=== PATIENT | male | born 1960 | race Asian ===

== ENCOUNTER 2021-10-13 15:17 | Emergency (ER) | payer MEDICARE, MEDICAID ==
[~2021-10-13] VITALS: Ht 172.7 cm; Wt 63.6 kg
[~2021-10-13 15:17] MED LIST: ABILIFY PO; ASPI-556 PO; LISI10TA24 PO; METF-911 PO; SIMV-261 PO
[2021-10-13 15:22] VITALS: BP 175/107
== END 2021-10-13 16:12 | disposition left against medical advice (07) ==
LOC: EMS 15:19
DX: S61.412A Laceration without foreign body of left hand, initial encounter (principal); W45.8XXA Other foreign body or object entering through skin, initial encounter; Y93.89 Activity, other specified; Y92.89 Other specified places as the place of occurrence of the external cause; Y99.8 Other external cause status; Z53.21 Procedure and treatment not carried out due to patient leaving prior to being seen by health care provider

== ENCOUNTER 2021-11-14 16:53 | Emergency (ER) | payer MEDICARE, MEDICAID ==
[~2021-11-14] VITALS: Ht 172.7 cm; Wt 75.0 kg
[2021-11-14] MEDS ORDERED: TraMADol HCL 50 MG TABLET PO ONE (19:30)
[2021-11-14] MEDS ORDERED: POVIDONE-IODINE 10% 15 ML SOLUTION UD TP ONE (19:30)
[2021-11-14] MEDS ORDERED: LIDOCAINE 1% 10 ML VIAL SQ ONE (19:30)
[2021-11-14] MEDS ORDERED: BACITRACIN 0.9 GM PACKET OINTMENT TP ONE (20:30)
[2021-11-14 21:00] VITALS: BP 140/93
== END 2021-11-14 21:43 | disposition home or self-care (01) ==
LOC: EMS 16:54
DX: S61.412A Laceration without foreign body of left hand, initial encounter (principal); I10 Essential (primary) hypertension; E11.9 Type 2 diabetes mellitus without complications; E78.00 Pure hypercholesterolemia, unspecified; F12.90 Cannabis use, unspecified, uncomplicated; F15.90 Other stimulant use, unspecified, uncomplicated; F17.210 Nicotine dependence, cigarettes, uncomplicated; Z79.82 Long term (current) use of aspirin; Z79.84 Long term (current) use of oral hypoglycemic drugs; W45.8XXA Other foreign body or object entering through skin, initial encounter; Y93.89 Activity, other specified; Y92.89 Other specified places as the place of occurrence of the external cause; Y99.8 Other external cause status
CPT/HCPCS: 12001; 99283; J3490

== ENCOUNTER 2021-11-18 05:43 | Emergency (ER) | payer MEDICARE, MEDICAID | END 2021-11-18 05:57 | disposition left against medical advice (07) | LOC: EMS 05:45 | DX: T14.90XA Injury, unspecified, initial encounter (principal); X58.XXXA Exposure to other specified factors, initial encounter; Y93.89 Activity, other specified; Y92.89 Other specified places as the place of occurrence of the external cause; Y99.8 Other external cause status; Z53.21 Procedure and treatment not carried out due to patient leaving prior to being seen by health care provider ==

== ENCOUNTER 2021-11-18 09:37 | Emergency (ER) | payer MEDICARE, MEDICAID ==
[~2021-11-18] VITALS: Ht 172.7 cm; Wt 72.0 kg
[2021-11-18 10:33] VITALS: BP 156/101
== END 2021-11-18 11:42 | disposition home or self-care (01) ==
LOC: EMS 09:42
DX: S61.412D Laceration without foreign body of left hand, subsequent encounter (principal); I10 Essential (primary) hypertension; E11.9 Type 2 diabetes mellitus without complications; F17.210 Nicotine dependence, cigarettes, uncomplicated; Z79.82 Long term (current) use of aspirin; Z79.84 Long term (current) use of oral hypoglycemic drugs; Z79.899 Other long term (current) drug therapy; W45.8XXD Other foreign body or object entering through skin, subsequent encounter
CPT/HCPCS: 99281; Z7502

== ENCOUNTER 2021-11-25 11:08 | Emergency (ER) | payer MEDICARE, MEDICAID ==
[~2021-11-25] VITALS: Ht 172.7 cm; Wt 75.0 kg
[2021-11-25 11:31] VITALS: BP 180/117
== END 2021-11-25 11:57 | disposition left against medical advice (07) ==
LOC: EMS 11:08
DX: Z48.00 Encounter for change or removal of nonsurgical wound dressing (principal); Z53.21 Procedure and treatment not carried out due to patient leaving prior to being seen by health care provider

== ENCOUNTER 2021-12-08 06:30 | Emergency (ER) | payer MEDICARE, MEDICAID ==
[~2021-12-08] VITALS: Ht 160 cm; Wt 72.7 kg
[2021-12-08] MEDS ORDERED: BACITRACIN 0.9 GM PACKET OINTMENT TP ONE (07:00)
[2021-12-08 07:04] VITALS: BP 133/89
== END 2021-12-08 07:32 | disposition home or self-care (01) ==
LOC: EMS 06:33
DX: S61.215D Laceration without foreign body of left ring finger without damage to nail, subsequent encounter (principal); Z48.02 Encounter for removal of sutures; Z79.82 Long term (current) use of aspirin; Z79.899 Other long term (current) drug therapy; I10 Essential (primary) hypertension; E11.9 Type 2 diabetes mellitus without complications; F17.210 Nicotine dependence, cigarettes, uncomplicated; W45.8XXD Other foreign body or object entering through skin, subsequent encounter
CPT/HCPCS: 99282; Z7502; Z7610

== ENCOUNTER 2023-03-11 11:36 | Emergency (ER) | payer MEDICARE, MEDICAID ==
[~2023-03-11] VITALS: Ht 172.7 cm; Wt 75.0 kg
[~2023-03-11 11:36] MED LIST changes: +METF-81 PO; -METF-911 PO
[2023-03-11 12:04] LABS: COVID AG,FIA SOURCE NASAL SWAB
[2023-03-11 12:40] LABS: INFLUENZA TYPE A NEGATIVE FOR TYPE A (NEGATIVE); INFLUENZA TYPE B NEGATIVE FOR TYPE B (NEGATIVE)
[2023-03-11] MEDS ORDERED: GuaiFENesin/D-METHORPHAN [SUGAR-FREE] 200-20MG/10 ML SYRUP UDCUP PO ONE (12:45)
[2023-03-11] MEDS ORDERED: ONDANSETRON HCL 4 MG TABLET PO ONE (12:45)
[2023-03-11] MEDS ORDERED: ACETAMINOPHEN 500 MG TABLET PO ONE (12:45)
[2023-03-11 12:46] LABS: GLUCOSE,POINT OF CARE 174 MG/DL (70-110)
[2023-03-11 13:21] LABS: BASOPHILS % (AUTO) 0.7 % (0.0-2.0); EOSINOPHILS % (AUTO) 1.9 % (1.0-6.0); HEMATOCRIT 36.2 % (41-53); HEMOGLOBIN 12.6 g/dL (13.5-17.5); LYMPHOCYTES % (AUTO) 15.4 % (22.0-44.0); MEAN CORPUSCULAR HEMOGLOBIN 31.6 pg (26.0-34.0); MEAN CORPUSCULAR HGB CONC 34.8 G/dL (31.0-37.0); MEAN CORPUSCULAR VOLUME 91 fL (80-100); MONOCYTES # (AUTO) 0.9 K/uL (0.1-1.0); MONOCYTES % (AUTO) 6.6 % (2.0-9.0); NEUTROPHILS % (AUTO) 75.4 % (40.0-70.0); PLATELET COUNT (AUTO) 336 K/uL (150-450); RED BLOOD CELL COUNT(AUTO) 3.99 MIL/uL (4.50-5.90); RED CELL DISTRIBUTION WIDTH 13.9 % (11.5-14.5)
[2023-03-11 13:25] LABS: APPEARANCE,URINE HAZY (CLEAR); BILIRUBIN,URINE NEGATIVE (NEGATIVE); GLUCOSE, URINE (UA) TRACE mg/dL (NEGATIVE); KETONES,URINE NEGATIVE (NEGATIVE); LEUKOCYTE ESTERASE ,URINE TRACE (NEGATIVE); NITRATE,URINE NEGATIVE (NEGATIVE); OCCULT BLOOD,URINE LARGE (NEGATIVE); PROTEIN,URINE 300-600,SEE CONFIRM mg/dL (NEGATIVE); SPECIFIC GRAVITIY, URINE 1.029 (1.003-1.030)
[2023-03-11 13:32] LABS: CALCIUM, TOTAL 9.2 mg/dL (8.8-10.5); CREATININE 1.67 mg/dL (0.60-1.30); POTASSIUM 4.8 mmol/L (3.5-5.1)
[2023-03-11 13:37] LABS: BACTERIA,URINE Few /HPF (None Seen); SQUAMOUS EPITHELIAL CELL,UR Few /LPF (None Seen); WBC,URINE 0-2 /HPF (0-5)
[2023-03-11 13:38] LABS: OTHER CASTS, URINE RBC CASTS 1+ /LPF (None Seen)
[2023-03-11 13:38] LABS: ALBUMIN 4.1 g/dL (3.4-5.0); BILIRUBIN,TOTAL 5.1 mg/dL (0.1-1.0); TOTAL PROTEIN, SERUM 8.1 g/dL (6.4-8.2)
[2023-03-11 13:39] LABS: SULFOSALICYLIC ACID,URINE 3+ (Negative)
[2023-03-11] MEDS ORDERED: BENZ-227 PO (15:33)
[2023-03-11] MEDS ORDERED: ONDA-104 PO (15:33)
[2023-03-11] MEDS ORDERED: GUAIFDM PO (15:33)
[2023-03-11] MEDS ORDERED: ACET-66 PO (15:33)
[2023-03-11 16:51] VITALS: BP 112/73
[2023-03-12 12:07] LABS: HEPATITIS C AB (EIA) Non Reactive (Non Reactive)
== END 2023-03-11 16:57 | disposition home or self-care (01) ==
LOC: EMS 11:36
DX: R07.89 Other chest pain (principal); J20.9 Acute bronchitis, unspecified; J06.9 Acute upper respiratory infection, unspecified; K74.60 Unspecified cirrhosis of liver; E11.65 Type 2 diabetes mellitus with hyperglycemia; N28.9 Disorder of kidney and ureter, unspecified; R31.29 Other microscopic hematuria; I10 Essential (primary) hypertension; F17.210 Nicotine dependence, cigarettes, uncomplicated; Z20.822 Contact with and (suspected) exposure to COVID-19
CPT/HCPCS: 99285; 76700; 71045; 87426; 80053; 81001; 82962; 83690; 84484; 85025; 87804; 36415; 80074; 93005; Q0162; 81002

== ENCOUNTER 2025-07-16 14:15 | Emergency (ER) | payer MEDICARE, MEDICAID ==
[~2025-07-16] VITALS: Ht 167.6 cm; Wt 82.4 kg
[~2025-07-16 14:15] MED LIST changes: -ABILIFY PO; +AMIO200T73 PO; +APIX5TAB PO; -ASPI-556 PO; +FURO-151 PO; +GLIP2.5T17 PO; -LISI10TA24 PO; -METF-81 PO; +METO25XL PO; -SIMV-261 PO
[2025-07-16 14:20] VITALS: PULSE 89; RESP 20; O2SAT 98
[2025-07-16] MEDS: CALCIUM GLUCONATE 100 MG/ML 10 ML IVP ONE ×2 (14:36→16:14)
[2025-07-16] MEDS: SODIUM BICARBONATE [ADULT] 8.4% 50 MEQ/50 ML SYRINGE IVP ONE ×3 (14:39→16:45)
[2025-07-16 14:40] VITALS: PULSE 89; RESP 20; O2SAT 96
[2025-07-16 14:44] VITALS: PULSE 90; RESP 26; O2SAT 99
[2025-07-16 14:45] LABS: ABG BASE EXCESS -24.6 mmol/L (-2.0-3.0); ABG CARBOXYHEMOGLOBIN 1.2 % (0.5-1.5); ABG HCO3 7.4 mmol/L (21.0-28.0); ABG METHEMOGLOBIN 0.9 % (0.0-1.5); ABG OXYGEN CONTENT 20.5 mL/dL (15.0-23.0); ABG OXYGEN SATURATION 89.8 % (94.0-98.0); ABG OXYHEMOGLOBIN 87.9 % (94.0-98.0); ABG PCO2 67 mmHg (32.0-48.0); ABG PH 6.794 (7.350-7.450); ABG TOTAL HEMOGLOBIN 16.5 G/dL (13.5-17.5); ALLEN TEST, BLOOD GAS Positive; FRACTIONATED INSPIRED OXYGEN 100.0 % (21-100.0); PO2, ARTERIAL BG 100.2 mmHg (83.0-108.0); SITE, BLOOD GAS RT BRACHIAL; SOURCE, BLOOD GAS ARTERIAL; TEMPERATURE, FAHRENHEIT, BG 97.6 FAHREN (96.0-98.6)
[2025-07-16] MEDS ORDERED: SODIUM BICARBONATE [ADULT] 8.4% 50 MEQ/50 ML SYRINGE IVP ONE ×3 (14:45→15:45)
[2025-07-16 14:46] LABS: ABG A-A DIFF O2 548.0 mmHg (10-20.0); O2 DEVICE,BLOOD GAS VENTILATOR (ROOM AIR); PEEP,BG 5 cm H2O; SET RATE, BG 20.0 min.; VT, ABG 400 ml
[2025-07-16 14:52] LABS: CALCIUM, TOTAL 7.4 mg/dL (8.8-10.5); CREATININE 2.52 mg/dL (0.60-1.30); GLOMERULAR FILTR. RATE CALC 26 mL/min (>60); SODIUM SERUM 128 mmol/L (136-145); UREA NITROGEN, BLOOD 32 mg/dL (7-18)
[2025-07-16 14:54] LABS: GLUCOSE,RANDOM 431 mg/dL (70-110)
[2025-07-16] MEDS: NOREPINEPHRINE 8 MG/0.9 % NACL 250 ML IV PRN (15:03)
[2025-07-16 15:04] LABS: TOTAL PROTEIN, SERUM 4.3 g/dL (6.4-8.2)
[2025-07-16 15:06] LABS: TROPONIN I-HIGH SENSITIVITY 142 ng/L (<76)
[2025-07-16 15:07] LABS: ASPARTATE AMINOTRANSFERASE 1346 U/L (15-37)
[2025-07-16] MEDS: SODIUM ZIRCONIUM CYCLOSILICATE 10 GM POWDER PACKET NG ONE (15:10)
[2025-07-16] MEDS: FUROSEMIDE 40 MG/4 ML VIAL IVP ONE (15:10)
[2025-07-16 15:13] LABS: CREATINE KINASE, TOTAL ONLY 1444.0 U/L (39-308)
[2025-07-16 15:18] LABS: CALCIUM, TOTAL 8.8 mg/dL (8.8-10.5); CREATININE 2.74 mg/dL (0.60-1.30); GLOMERULAR FILTR. RATE CALC 24.0 mL/min (>60); GLUCOSE,RANDOM 167.0 mg/dL (70-110); SODIUM SERUM 132.0 mmol/L (136-145); UREA NITROGEN, BLOOD 34.0 mg/dL (7-18)
[2025-07-16] MEDS ORDERED: INSULIN REGULAR, HUMAN 100 UNITS/ML ONE (15:26)
[2025-07-16] MEDS: DEXTROSE 50%-WATER 25 GM/50 ML SYRINGE IVP ONE ×2 (15:31→16:56)
[2025-07-16] MEDS: INSULIN REGULAR, HUMAN 100 UNITS/ML IVP ONE ×2 (15:31→16:58)
[2025-07-16] MEDS ORDERED: SODIUM CHLORIDE 0.9% 500 ML IV ONE (15:35)
[2025-07-16 15:36] LABS: GLUCOMETER DEV NAME(LOC) ERT.7; GLUCOSE,POINT OF CARE 154 MG/DL (70-110)
[2025-07-16] MEDS ORDERED: DEXTROSE 50%-WATER 25 GM/50 ML SYRINGE IVP ONE (15:39)
[2025-07-16] MEDS ORDERED: CALCIUM GLUCONATE 0.465 MEQ/ML 10 ML VIAL ONE (15:39)
[2025-07-16] MEDS ORDERED: CALCIUM CHLORIDE 100 MG/ML 10 ML SYRINGE IVP ONE ×2 (15:39→15:45)
[2025-07-16] MEDS ORDERED: 0.9% SODIUM CHLORIDE 10 ML SYRINGE IVP ONE (15:39)
[2025-07-16] MEDS ORDERED: EPINEPHrine 1:10,000 [1 MG/10 ML] SYRINGE ONE ×2 (15:39→15:45)
[2025-07-16 15:44] LABS: LACTIC ACID 18.7 mmol/L (0.4-2.0)
[2025-07-16] MEDS: ALBUTEROL SULFATE 2.5 MG/0.5 ML 5 ML NEB SOLUTION NEB ONE (15:46)
[2025-07-16 15:52] LABS: RED BLOOD CELL COUNT(AUTO) 4.58 MIL/uL (4.50-5.90); RED CELL DISTRIBUTION WIDTH 19.4 % (11.5-14.5); WHITE BLOOD COUNT (AUTO) 8.6 K/uL (4.5-11.0)
[2025-07-16 15:55] VITALS: PULSE 89; RESP 26; O2SAT 99
[2025-07-16 16:15] LABS: PLATELET COUNT (AUTO) 34 K/uL (150-450); RBC MORPHOLOGY COMMENT ABNORMAL RBC MORPH
[2025-07-16] MEDS ORDERED: NOREPINEPHRINE 8 MG/0.9 % NACL 250 ML IV PRN (16:15)
[2025-07-16] MEDS ORDERED: ACETAMINOPHEN 325 MG TABLET PO PRN (16:15)
[2025-07-16] MEDS ORDERED: IPRATROPIUM BROMIDE 0.5 MG/2.5 ML NEB SOLUTION NEB PRN (16:15)
[2025-07-16] MEDS ORDERED: ALBUTEROL SULFATE 2.5 MG/0.5 ML NEB SOLUTION NEB PRN (16:15)
[2025-07-16] MEDS ORDERED: CefTRIAXone 1 GM/DEXTROSE 50 ML IV ONE (16:15)
[2025-07-16] MEDS ORDERED: ONDANSETRON HCL 4 MG/2 ML VIAL IVP PRN (16:15)
[2025-07-16 16:17] LABS: PATHOLOGY REVIEW, DIFF YES
[2025-07-16] MEDS: SODIUM CHLORIDE 0.9% 500 ML IV ONE (16:31)
[2025-07-16] MEDS: CALCIUM CHLORIDE 100 MG/ML 10 ML SYRINGE IVP ONE (16:55)
[2025-07-16] MEDS: SODIUM CHLORIDE 0.9% 250 ML IV ONE (17:07)
[2025-07-16] MEDS: SODIUM BICARBONATE 150 MEQ in DEXTROSE 5%-WATER 1,000 ML IV ONE (17:08)
[2025-07-16] MEDS: CefTRIAXone SODIUM 2 GM in DEXTROSE 5%-WATER 50 ML IV SCH (17:09)
[2025-07-16 17:24] LABS: TROPONIN I-HIGH SENSITIVITY 310 ng/L (<76)
[2025-07-16] MEDS: HYDROCORTISONE SOD SUCC 100 MG/2 ML VIAL IVP SCH (17:48)
[2025-07-16] MEDS: DOXYCYCLINE HYCLATE 100 MG in DEXTROSE 5%-WATER 100 ML IV SCH (17:49)
[2025-07-16 18:00] VITALS: PULSE 98; RESP 26; O2SAT 93
[2025-07-16] MEDS: PHYTONADIONE 5 MG in SODIUM CHLORIDE 0.9% 50 ML IV ONE (18:05)
[2025-07-16] MEDS: PHENYLEPHRINE HCL 400 MG in DEXTROSE 5%-WATER 210 ML IV PRN (18:40)
[2025-07-16] MEDS ORDERED: PHENYLEPHRINE HCL IN 0.9% NACL 400 MCG/10 ML SYRINGE IVP ONE (19:01)
[2025-07-16] MEDS: DOPamine 400MG/D5W[STANDARD] 250 ML IV PRN (19:13)
[2025-07-16] MEDS: VASOPRESSIN 40 UNITS in DEXTROSE 5%-WATER 98 ML IV PRN (19:30)
[2025-07-16] MEDS: EPINEPHrine 5 MG in DEXTROSE 5%-WATER 245 ML IV PRN (19:45)
[2025-07-16] MEDS ORDERED: PHENYLEPHRINE 200 MG/D5%-WATER 250 ML IV PRN (19:45)
[2025-07-16 19:56] LABS: GLUCOMETER DEV NAME(LOC) ERT.7; GLUCOSE,POINT OF CARE 183 MG/DL (70-110)
[2025-07-16] MEDS: DOCUSATE SODIUM 100 MG CAPSULE PO SCH (20:08)
[2025-07-16 20:47] VITALS: BP 40/10; PULSE 40; RESP 26; TEMP 94.2; O2SAT 94
[2025-07-16 20:48] LABS: ABG BASE EXCESS -22.0 mmol/L (-2.0-3.0); ABG CARBOXYHEMOGLOBIN 1.1 % (0.5-1.5); ABG HCO3 8.5 mmol/L (21.0-28.0); ABG METHEMOGLOBIN 1.1 % (0.0-1.5); ABG OXYGEN CONTENT 16.0 mL/dL (15.0-23.0); ABG OXYGEN SATURATION 88.5 % (94.0-98.0); ABG OXYHEMOGLOBIN 86.6 % (94.0-98.0); ABG PCO2 55 mmHg (32.0-48.0); ABG TOTAL HEMOGLOBIN 13.1 G/dL (13.5-17.5); FRACTIONATED INSPIRED OXYGEN 100.0 % (21-100.0); PO2, ARTERIAL BG 74.8 mmHg (83.0-108.0); TEMPERATURE, FAHRENHEIT, BG 94.2 FAHREN (96.0-98.6)
[2025-07-16 20:49] LABS: ABG PH 6.906 (7.350-7.450); SITE, BLOOD GAS LFT FEMORAL; SOURCE, BLOOD GAS ARTERIAL LINE
[2025-07-16 20:50] LABS: O2 DEVICE,BLOOD GAS VENTILATOR (ROOM AIR); PEEP,BG 5 cm H2O; SET RATE, BG 26.0 min.; VT, ABG 400 ml
[2025-07-16] MEDS ORDERED: CHLORHEXIDINE GLUCONATE 2% TOWELETTE [2'S/6'S] TP SCH (22:00)
[2025-07-17] MEDS ORDERED: HEPARIN SODIUM,PORCINE 5,000 UNITS/ML VIAL SQ SCH (08:00)
== END 2025-07-17 03:30 | disposition short-term general hospital (02) ==
LOC: EMS 14:15 → EDH 16:10 → UNDOADMIN 16:10 → EDH 16:23 → 6S 16:23 → EMS 07-17 03:30
DX: I46.9 Cardiac arrest, cause unspecified (principal); E11.9 Type 2 diabetes mellitus without complications; F17.210 Nicotine dependence, cigarettes, uncomplicated; E78.00 Pure hypercholesterolemia, unspecified; I11.0 Hypertensive heart disease with heart failure; I50.9 Heart failure, unspecified; Z79.899 Other long term (current) drug therapy; Z79.84 Long term (current) use of oral hypoglycemic drugs; Z79.01 Long term (current) use of anticoagulants
CPT/HCPCS: 80048; 80076; 82550; 82962; 83605; 83735; 83880; 84484; 85025; 85610; 85730; 86850; 86900; 86901; 36415; 93306; 82805; 94640; 71045; 70450; 76770; 92950; 93005; 51702; 96365; 96366; 96367; 96376; 96368; 96375; 31500; 99291; 84145; 94003; J0610; J0696; J1265; J3490 ×6; J0169 ×2; J1938; J1720; J1815; J2370; J3430; J7060 ×4; J7040; J7050; 94002; 94644